=== PATIENT | male | born 1980 | race Caucasian/White ===

== ENCOUNTER 2022-12-10 11:03 | Observation (INO) | payer OTHER ==
[~2022-12-10] VITALS: Ht 175.3 cm; Wt 101.4 kg
[2022-12-10] VITALS (13 sets, daily range): BP systolic 90–104; BP diastolic 46–62
[~2022-12-10 11:03] MED LIST: AMOXICILLIN875 MG OR; NO HOME MEDS; PRILOSEC20 MG/CAP PO; ZOFRAN ODT8 MG PO
[2022-12-10] MEDS ORDERED: PROTONIX40 M2 PO (12:08)
[2022-12-10] MEDS ORDERED: LISINOPRIL40 MG PO (12:08)
[2022-12-10] MEDS ORDERED: HYDROCHLOROT25 MG PO (12:08)
[2022-12-10 12:12] LABS: BASO% 0.2 % (0-3); EOS% 1.3 % (0-8); HEMATOCRIT 39.6 % (39.0-50.0); HEMOGLOBIN 13.5 g/dl (14.0-18.0); IMMATURE GRANULOCYTES 0.2 % (0.0-5.0); LYMPH% 10.4 % (15-41); MEAN CELL VOLUME 93.8 fL CALC (80.0-100.0); MEAN CORPUSCULAR HGB CONC 34.1 g/dL CAL (32.0-36.0); MONO% 7.2 % (2-13); NEUT# 9.79 thou/uL (1.82-7.42); NEUT% 80.7 % (42-76); RED BLOOD COUNT 4.22 mill/uL (4.70-6.10); RED CELL DISTRI WIDTH 12.2 % (11.5-15.5)
[2022-12-10 12:22] LABS: ALBUMIN 4.6 g/dL (3.2-5.0); BILIRUBIN, TOTAL 0.5 mg/dL (0.2-1.3); POTASSIUM 4.2 mmol/l (3.5-5.1); TOTAL PROTEIN 8.3 g/dL (6.3-8.2)
[2022-12-10 12:23] LABS: CREATININE 3.6 mg/dL (0.7-1.3)
[2022-12-10 12:48] LABS: URINE BILIRUBIN - DIPSTICK NEGATIVE (NEGATIVE); URINE BLOOD DIPSTICK NEGATIVE (NEGATIVE); URINE COLOR YELLOW; URINE GLUCOSE - DIPSTICK NEGATIVE (NEGATIVE); URINE KETONE NEGATIVE (NEGATIVE); URINE LEUK ESTERASE NEGATIVE (NEGATIVE); URINE PH 5.5 (4.5-8.0); URINE PROTEIN - DIPSTICK NEGATIVE (NEG-TRACE); URINE UROBILINOGEN - DIPSTICK 0.2 E.U./dL (0.2)
[2022-12-10 12:52] LABS: URINE NITRITE - DIPSTICK NEGATIVE (Negative)
[2022-12-10] MEDS ORDERED: [UNRECOGNIZED DRUG - OTHER] PO (14:21)
[2022-12-11 00:23] VITALS: BP 97/52
[2022-12-11 04:21] VITALS: BP 97/52
[2022-12-11 06:18] LABS: BASO% 0.6 % (0-3); EOS% 3.3 % (0-8); HEMATOCRIT 39.6 % (39.0-50.0); HEMOGLOBIN 12.4 g/dl (14.0-18.0); LYMPH% 33.1 % (15-41); MEAN CORPUSCULAR HGB 32.5 pG CALC (26.0-32.0); MEAN CORPUSCULAR HGB CONC 31.3 g/dL CAL (32.0-36.0); MONO% 8.3 % (2-13); NEUT# 2.85 thou/uL (1.82-7.42); NEUT% 54.7 % (42-76); POTASSIUM 4.7 mmol/l (3.5-5.1); RED BLOOD COUNT 3.82 mill/uL (4.70-6.10); RED CELL DISTRI WIDTH 12.3 % (11.5-15.5)
[2022-12-11 06:19] LABS: MEAN CELL VOLUME 103.7 fL CALC (80.0-100.0)
[2022-12-11 06:20] LABS: ALBUMIN 3.5 g/dL (3.2-5.0); BILIRUBIN, TOTAL 0.2 mg/dL (0.2-1.3); CREATININE 1.6 mg/dL (0.7-1.3); TOTAL PROTEIN 6.2 g/dL (6.3-8.2)
[2022-12-11 08:28] VITALS: BP 99/53
== END 2022-12-11 11:25 | disposition home or self-care (01) | DRG 684 ==
LOC: ED 11:03 → MS2 12:57
PROVIDERS: Family Medicine; Nurse Practitioner Family; ADMIT Internal Medicine; ATTEND Internal Medicine
DX: N17.9 Acute kidney failure, unspecified (principal); E86.0 Dehydration; D72.829 Elevated white blood cell count, unspecified; I10 Essential (primary) hypertension; F17.200 Nicotine dependence, unspecified, uncomplicated; K21.9 Gastro-esophageal reflux disease without esophagitis
CPT/HCPCS: G0378; J1650